=== PATIENT | female | born 1955 | race Caucasian/White ===

== ENCOUNTER 2018-08-15 06:23 | Observation (INO) ==
[~2018-08-15 06:23] MED LIST: Bacitracin 50,000 UNIT, Polymyxin B Sulfate 500,000 UNIT, Sodium Chloride IRRigation 1,... IR ONE
[2018-08-15] MEDS ORDERED: Aminoglycoside Consult 1 EACH MC ONE (06:24)
[2018-08-15] MEDS ORDERED: *HR* Midazolam HCl 2 MG/2 ML VIAL ONE (06:54)
[2018-08-15] MEDS ORDERED: *HR* Propofol 200 MG/20 ML VIAL IVP ONE (06:54)
[2018-08-15] MEDS ORDERED: *HR* FentaNYL (PF) 100 MCG/2 ML VIAL ONE (06:54)
[2018-08-15] MEDS ORDERED: Clindamycin 900 MG/50 ML 900 MG/50 ML IV.SOLN IVPB ONE (06:59)
[2018-08-15] MEDS ORDERED: Ringers Solution, Lactated 1,000 ML IVC SCH (07:00)
--- NOTE | 2018-08-15 07:06 | Anesthesia Evaluation PreOp ---
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: Other (ANXIETY, MIGRTAINES) Other Medical History: Renal (CKD3), Thyroid, Other (OBESITY, BMI 37) Anesthesia History: No Prior Anesthetic Complications, Past Anesthesia (SEVERAL , LUMBAR FUSION 2015) Alcohol Use: none Drug use: none Medications and Allergies Alendronate Sodium [Alendronate Sodium] 70 mg PO TARIQ 08/15/18 [History] Amitriptyline [Elavil] 50 mg PO HS 08/15/18 [History] Bupropion HCl [Wellbutrin Xl] 300 mg PO DAILY 08/15/18 [History] Cholecalciferol (D-3) [Vitamin D] 5,000 unit PO DAILY 08/15/18 [History] Cyanocobalamin (Vitamin B-12) [Vitamin B-12] 2,000 mcg PO DAILY 08/15/18 [ History] Cyclobenzaprine HCl 5 mg PO TID 08/15/18 [History] Ferrous Sulfate [Iron] 325 mg PO TID 08/15/18 [History] Folic Acid 1 mg PO DAILY 08/15/18 [History] Gabapentin [Neurontin] 300 mg PO BID 08/15/18 [History] Levothyroxine [Levothyroxine Sodium] 137 mcg PO DAILY@0630 08/15/18 [History] Multivitamin [One Daily Multivitamin] 1 tab PO DAILY 08/15/18 [History] Propranolol [Inderal] 20 mg PO BID 08/15/18 [History] Sulfamethoxazole/Trimeth DS [Bactrim Ds] 1 tab PO BID 08/15/18 [History] 3 Allergy/AdvReac Type Severity Reaction Status Date / Time Penicillins [PCN] Allergy Hives Verified 08/15/18 06:46 iodine AdvReac Hypotension Verified 08/15/18 06:46 - Meds/Allergy Pre-op Review Medications Reviewed: Yes Allergies Reviewed: Yes Beta Blockers on Current Med List: Yes If Beta Blockers taken, Date/Time (Last Dose taken): 0500 Anesthesia Results - Labs Laboratory Last Values WBC 6.9 K/mcL (4.3-11.1) 08/11/18 12:55 RBC 4.34 M/mcL (3.82-4.97) 08/11/18 12:55 Hgb 13.4 g/dL (11.5-15.4) 08/11/18 12:55 Hct 42.4 % (35.3-44.9) 08/11/18 12:55 MCV 97.7 fL (83.0-100.0) 08/11/18 12:55 MCH 30.9 pg (28.0-33.3) 08/11/18 12:55 MCHC 31.6 g/dL (31.6-35.5) 08/11/18 12:55 RDW 14.3 % (11.5-14.5) 08/11/18 12:55 Plt Count 312 K/mcL (140-400) 08/11/18 12:55 MPV 10.2 fL (9.4-12.4) 08/11/18 12:55 Immature Gran % 0.3 % (0-4) 08/11/18 12:55 Seg Neutrophils % 70.0 % 08/11/18 12:55 Lymphocytes % 19.2 % 08/11/18 12:55 Monocytes % 5.2 % 08/11/18 12:55 Eosinophils % 4.7 % 08/11/18 12:55 Basophils % 0.6 % 08/11/18 12:55 Neutrophils # 4.8 K/mcL (1.6-8.9) 08/11/18 12:55 Lymphocytes # 1.3 K/mcL (0.6-4.6) 08/11/18 12:55 Monocytes # 0.4 K/mcL (0.0-1.3) 08/11/18 12:55 Eosinophils # 0.3 K/mcL (0.0-0.6) 08/11/18 12:55 Basophils # 0.0 K/mcL (0.0-0.2) 08/11/18 12:55 PT 10.5 Seconds (9.4-12.1) 08/11/18 12:55 INR 0.9 08/11/18 12:55 APTT 34.5 Seconds (26.0-36.0) 08/11/18 12:55 BUN 26 mg/dL (8-23) H 08/11/18 12:55 Creatinine 1.15 mg/dL (0.60-1.20) 08/11/18 12:55 Est GFR ( Amer) 57 (> 60) L 08/11/18 12:55 Est GFR (Non-Af Amer) 47 (> 60) L 08/11/18 12:55 BUN/Creatinine Ratio 23 (6-26) 08/11/18 12:55 Anesthesia Exam O2 Sat Height 1.68 m Height 1.68 m Height 1.68 m Weight 104.78 kg Weight 104.78 kg Weight 104.78 kg O2 Sat by Pulse Oximetry 95 Vital Signs Temp Pulse Resp BP Pulse Ox 98.3 F 86 18 107/68 95 08/15/18 07:33 08/15/18 07:33 08/15/18 07:33 08/15/18 07:33 08/15/18 07:33 NPO (# of Hours): 8 - HEENT Mallampati: II Teeth: Normal Oral Opening: Greater than 3 - Cardiac Rhythm: Regular - Pulmonary Breath Sounds: bilateral Clear Respiratory Effort: Symmetrical Anesthesia Assess/Plan ASA Score: 3 Modified [place] Scale for Level of Consciousness: Cooperative, oriented, and tranquil Anesthetic Plan: General Monitoring Plan: Standard Monitors Recovery Plan: PACU
[2018-08-15] MEDS ORDERED: Vancomycin 1,000 MG VIAL ONE (07:30)
--- NOTE | 2018-08-15 07:44 | History & Physical Report ---
Date of Encounter: 08/15/18 Time of Encounter: 07:42 24 Hour HP Update - Instructions Instructions: If the History and Physical is less than 30 days old and was completed prior to A.M. admission and or procedure and has NOT been updated on calendar day of procedure please complete this update prior to performing procedure. - Update Patient reports changes in Medical Condition: No Changes in examination, assessment, or condition: No Changes in Medication: No Preop tests/diagnostics Reviewed: Yes Pre-Op MRSA Screen: Negative Surgery Remains Indicated: Yes Consent for Planned Operative Procedure(s) Verified: Yes - Pre-Operative Checklist Preoperative Checklist Indicated: No Prophylactic Antibiotic Ordered: Yes Home Medications Include Beta Olga Lidia: Yes Beta Olga Lidia Taken Today (Day of Surgery): No Beta Olga Lidia Taken Yesterday (Day Prior to Surgery): Yes Is VTE Prophylaxis Indicated?: Yes
[2018-08-15] MEDS ORDERED: Acetaminophen IV 1,000 MG/100 ML INFUS..BTL ONE (07:46)
[2018-08-15] MEDS ORDERED: EPHEDrine 50 MG/ML VIAL ONE (08:03)
[2018-08-15] MEDS ORDERED: *HR* Promethazine 25 MG/ML VIAL IVP PRN (08:38)
[2018-08-15] MEDS ORDERED: *HR* OxyCODONE Immed Rel 5 MG TABLET PO PRN (08:38)
[2018-08-15] MEDS ORDERED: *HR* PHENYLEPHRINE 1,000 MCG/10 ML SYRINGE IVP ONE (08:57)
[2018-08-15] MEDS ORDERED: Dexamethasone 4 MG/ML VIAL ONE (08:57)
[2018-08-15] MEDS ORDERED: *HR* Rocuronium Bromide 50 MG/5 ML VIAL ONE (08:57)
[2018-08-15] MEDS ORDERED: Lidocaine -MPF 4% 5 ML AMPUL ONE (08:57)
[2018-08-15] MEDS ORDERED: Ondansetron 4 MG/2 ML VIAL ONE (08:57)
[2018-08-15] MEDS ORDERED: Lidocaine -MPF 2% 2 ML VIAL ONE (08:57)
[2018-08-15] MEDS ORDERED: *HR* Phenylephrine 10 MG/ML VIAL ONE (08:57)
[2018-08-15] MEDS ORDERED: Neostigmine Methylsulfate 3 MG/3 ML SYRINGE ONE ×2 (09:08→09:10)
--- NOTE | 2018-08-15 09:39 | Orthopedic Operative Note ---
Date of procedure: 08/15/18 Pre-op diagnosis: Infected lumbar wound Post-op diagnosis: same Operation/Findings: Irrigation and debridement, packing lumbar wound: The patient was brought to the operative theater where she underwent general endotracheal anesthesia. Antibiotics were held prior to the start of the procedure in anticipation of taking intraoperative cultures.. Compression boots and stockings were used for deep vein thrombosis prophylaxis. The patient was placed prone on a Zac table. The back was prepped and draped in the usual sterile fashion. An incision was marked and centered over the L3-S1 interspaces in the midline were previous hardware was noted on preoperative radiographic studies. We used Bovie cautery to make an incision and then this incision was deepened through the lumbar fascia. We noted a sinus tract on the right side when exploring the 1 cm sized open defect in the skin. We took superficial wound cultures, deep wound cultures, and explored this sinus tract which went all the way down to the right-sided hardware. There are mild amounts of seropurulent or chronic appearing tissue around the sinus tract which were debrided. We exposed the hardware on the right side and did further debridement. It looked like a chronic indolent infection. After debridement we copiously irrigated the wound including the hardware, deep layers, and superficial layers with vancomycin impregnated normal saline. We then packed the wound from deep layers over the hardware to the superficial layers with Betadine some Alf diluted with normal saline and Kerlix sponges. The wound was packed open and the packed material was held in place with interrupted 1 Prolene suture. Sterile dressings were placed over the wound, and the wound was protected with an Ioban covering. The patient was turned supine in a hospital bed, and was extubated in the operative theater. All sponge needles and instrument counts were correct at the end of the procedure. The patient tolerated the procedure well without complications. Anesthesia: GETA Surgeon: Jordan Fields Jr Was there an family assistant present: No Estimated blood loss (cc): 50 Specimen: Superficial and deep lumbar wound cultures, deep lumbar wound culture hardw Condition: stable Disposition: PACU
[2018-08-15] MEDS: *HR* HYDROmorphone (PF) 1 MG/ML SYRINGE IVP PRN ×4 (09:56→10:12)
--- NOTE | 2018-08-15 10:32 | Anesthesia Evaluation Post Op ---
Date of Encounter: 08/15/18 Time of Encounter: 10:32 - Discharge PostOp Status: Transfer Patient to floor (Patient's vital signs have been reviewed. Patient is stable postoperatively and has adequately recovered from anesthesia. Patient is determined to have stable airway patency and respiratory function including respiratory rate and oxygen saturation. Patient has a stable heart rate, blood pressure and adequate hydration. Patients mental status is acceptable. Patients temperature is appropriate. Pain and nausea are adequately controlled.)
[2018-08-15] MEDS ORDERED: Ondansetron 4 MG/2 ML VIAL IVP PRN (10:55)
[2018-08-15] MEDS ORDERED: Naloxone 0.4 MG/ML INJ IVP PRN (10:55)
[2018-08-15] MEDS ORDERED: Acetaminophen 325 MG TABLET PO PRN (10:55)
[2018-08-15] MEDS ORDERED: Ringers Solution, Lactated 1,000 ML ONE (11:38)
[2018-08-15] MEDS ORDERED: 0.9 % Sodium Chloride 500 ML IVC ONE (13:21)
[2018-08-15] MEDS: *HR* OxyCODONE Immed Rel 5 MG TABLET PO PRN ×2 (17:59→23:33)
[2018-08-15] MEDS: Sulfamethoxazole/Trimeth DS 1 EACH TABLET PO SCH (20:28)
[2018-08-16] MEDS: *HR* HYDROcodone/Acet 5/325 mg TABLET PO PRN ×2 (03:43→13:08)
[2018-08-16 06:03] LABS: Basophils % 0.1 %; Hematocrit 35.1 % (35.3-44.9); Immature Granulocytes % 0.3 % (0-4); Lymphocytes # 0.7 K/mcL (0.6-4.6); Mean Corpuscular HGB Conc 32.2 g/dL (31.6-35.5); Mean Corpuscular Hemoglobin 30.8 pg (28.0-33.3); Mean Corpuscular Volume 95.6 fL (83.0-100.0); Mean Platelet Volume 9.8 fL (9.4-12.4); Monocytes # 0.5 K/mcL (0.0-1.3); Monocytes % 5.5 %; Neutrophils # 8.2 K/mcL (1.6-8.9); Platelet Count 242 K/mcL (140-400); Red Blood Count 3.67 M/mcL (3.82-4.97); Red Cell Distribution Width 13.9 % (11.5-14.5); Segmented Neutrophils % 87.1 %
[2018-08-16 06:04] LABS: Hemoglobin 11.3 g/dL (11.5-15.4)
[2018-08-16] MEDS: *HR* OxyCODONE Immed Rel 5 MG TABLET PO PRN ×3 (06:53→23:43)
[2018-08-16] MEDS: Cholecalciferol (D-3) 1,000 UNIT TABLET PO SCH (07:39)
[2018-08-16] MEDS: Multivit/Ca/Min/Fe/FA 1 TAB TABLET PO SCH (07:40)
[2018-08-16] MEDS: Sulfamethoxazole/Trimeth DS 1 EACH TABLET PO SCH (07:40)
[2018-08-16] MEDS: BuPROPion XL (24 HR) 150 MG TABLET PO SCH (07:40)
[2018-08-16] MEDS: Cyanocobalamin (B-12) 1,000 MCG TABLET PO SCH (07:40)
[2018-08-16] MEDS: Folic Acid 1 MG TABLET PO SCH (07:40)
--- NOTE | 2018-08-16 11:48 | Spine Progress Note ---
Date of Encounter: 08/16/18 Time of Encounter: 11:46 Subjective Principal diagnosis: Lumbar wound infection Interval history: Patient without complaints. Afebrile vital signs stable. Wound is packed open with Betadine soaked dressings and Ioban in place. Some leakage noted. She is neurovascularly intact with regard to bilateral lower extremities. Preliminary cultures revealed gram-negative toan. Asked case with infectious disease who agreed to consult patient. Continue antibiotics. We will plan irrigation and debridement and closure lumbar wound tomorrow. Objective Vital signs: Vital Signs Temp Pulse Resp BP Pulse Ox 08/16/18 10:47 97.7 F 63 16 100/67 100 08/16/18 07:51 100 08/16/18 07:48 98.0 F 77 16 110/65 100 08/16/18 05:00 97.7 F 69 16 100/60 96 08/15/18 23:47 97.5 F L 67 16 94/57 98 08/15/18 18:36 98.1 F 74 16 91/52 94 08/15/18 17:02 98.1 F 79 14 107/62 96 08/15/18 14:16 97.7 F 87 10 86/53 97 08/15/18 13:22 97.6 F 91 97/63 97 08/15/18 12:44 97.6 F 95 14 94/61 97 08/15/18 11:49 99 Intake and Output 08/15/18 08/16/18 08/16/18 23:59 07:59 15:59 Intake Total 450 / 450 250 / 250 1000 / 1000 Output Total 400 / 400 Balance 50 / 50 250 / 250 1000 / 1000 Intake: IV Fluids 250 / 250 250 / 250 1000 / 1000 Vancocin 1,250 MG In 0.9 % 250 / 250 250 / 250 Sodium Chloride 250 ML @ 167 mls/hr IVPB Q12H KIESHA Rx#: [id number] Oral 200 / 200 Output: Urine 400 / 400 Other: # Voids 1 1 1 Weight 104.8 kg - Labs CBC & BMP: 08/16/18 05:32 Labs: Abnormal lab results RBC 3.67 M/mcL (3.82-4.97) L 08/16/18 05:32 Hgb 11.3 g/dL (11.5-15.4) L D 08/16/18 05:32 Hct 35.1 % (35.3-44.9) L 08/16/18 05:32 ESR 26 mm/hr (0-15) H 08/16/18 05:32 Consult Discharge Plan - Plan Referrals: Juanito Echevarria MD [Primary Care Provider] -
--- NOTE | 2018-08-16 12:50 | Infectious Disease Consult ---
Date of Encounter: 08/16/18 Time of Encounter: 12:39 Assessment and Plan (1) Discitis of lumbosacral region Status: Acute Assessment and plan: Initial lumbar fusion at [facility] August 2016 Complicated by surgical wound infection with Escherichia coli September 2016; treated with oral antibiotics Surgical wound dehiscence in July 2018. Started seeing wound care with wound tracking down. Wound culture on 07/29/2018 positive for Escherichia coli that is pansensitive with the exception of Unasyn/ampicillin X-ray revealed intact hardware with no hardware loosening Status post I&D by Dr. Fields 08/15/2018. The tunneling track down through the fascia to the hardware but no pam purulence Intra-Op cultures positive for gram-negative rods Concern for hardware involvement Check baseline labs including CBC, BMP, ESR and CRP DC vancomycin Start cefepime 2 g IV every 12 hours while cultures finalize Will tailor antibiotics based on the culture final ID and susceptibility Duration of treatment likely 6 weeks and maybe suppressive oral antibiotic therapy after that Monitor labs and for drug toxicity Discussed with Dr. Fields (2) Penicillin allergy Status: Acute Assessment and plan: Had a rash when she took penicillin over 20 years ago I explained to her that cefepime as cephalosporin and this may be 8% cross reactivity with penicillin so we will watch her closely (3) GERD (gastroesophageal reflux disease) Status: Acute Qualifiers: Esophagitis presence: without esophagitis Qualified Code(s): K21.9 - Gastro -esophageal reflux disease without esophagitis (4) Hyperlipidemia Status: Acute Qualifiers: Hyperlipidemia type: unspecified Qualified Code(s): E78.5 - Hyperlipidemia , unspecified (5) Thyroid disease Status: Acute (6) Chronic kidney disease (CKD) Status: Acute Assessment and plan: GFR in the 40s last time a BMP was checked Repeat BUN and creatinine and dose adjust antibiotics based on the creatinine clearance Qualifiers: Chronic kidney disease stage: stage 2 (mild) Qualified Code(s): N18.2 - Chronic kidney disease, stage 2 (mild) (7) Non-healing surgical wound Status: Acute Assessment and plan: Causative organism gram-negative jones Continue cefepime Duration of treatment likely 6 weeks Qualifiers: Encounter type: initial encounter Qualified Code(s): T81.89XA - Other complications of procedures, not elsewhere classified, initial encounter Infectious Disease HPI - Data of Consult Patient: new to practice Consult date: 08/16/18 Requesting Physician: Jordan Fields Jr MD Primary Care Provider: Juanito Echevarria MD - Consult Narrative Reason for consult: Hardware infection of the spine History of present illness: Ms. Butler is a 63 year old female Patient is 63-year-old woman who presented to [place] on 08/15/2018 for evaluation of surgical wound in the lumbar spine nonhealing. We are consulted today for spine hardware infection. Patient is a 63-year-old woman with past medical history mentioned below including GERD, hyperlipidemia, thyroid disease and severe stenosis of the spinal, with lumbar radiculopathy status post lumbar fusion at [facility] on 08/26/2016. Patient apparently was discharged home and post op day and she started having drainage. Patient tells me that she went back and had an I&D done on September 22 and was discharged home on oral doxycycline but she was told she had Escherichia coli and it was in the blood. I am not sure if the history the patient is providing is accurate. Patient states that she was doing well through July 2018. Prior to that she denies any fevers any chills any night sweats any weight loss. Patient denied any back pain. All patient had what she felt like was a pimple that started draining. Prior to that patient told me that she fell twice but she does not remember why. She denies tripping or if she denies anything. She just told me she was walking and the next thing she remembers is waking up on the floor. Patient does not denies any trauma to her back. Patient was evaluated at [facility] with the wound infection and apparently she was told to see plastics and she was not happy with how [facility] was do not think so she came here for second opinion. Patient was seen by wound care doctor Joyce and he was concerned that the infection was tunneling deeper and deeper from 4 cm to 8 cm over time. Patient was eventually seen by Dr. Fields and was taken to the OR for I&D. Dr. Fields tells me that the infection tracked down all the way to the hardware and through the fascia. Patient was washed up and Intra-Op cultures were sent. Cultures intraoperatively on growing gram-negative rods 2 out of 2 sets. There was no pam purulence or necrotic tissue. Currently patient appears comfortable laying in bed. Denies any headache no sinus pressure no runny nose. No chest pain or shortness of breath that. No nausea or vomiting. No abdominal pain or diarrhea. No constipation. No urinary symptoms. Patient denies any rash or joint pain. CC: Jordan Fields Jr MD Past Med Surg Social Fam HX - Past Medical History Medical history: GERD, hyperlipidemia, thyroid disease, other Additional medical history: Severe stenosis spinal column, Lumbar Radiculopathy , Lumbago with parasthemia, Gastroperesis Psychiatric history: anxiety, depression - Past Surgical History Additional surgical history: Tansilectomy 1959, Cholecystectomy, Exploratory lap , x2, Ectopic , Fracture right ankle with pinning, Gastric bypass, TKR, Spinal fusion with bone graft/blood transfusion 2015. - Social History Smoking Status: Never smoker Smokeless Tobacco Status: No Alcohol use: none Drug use: none - Family History Mother Adopted: No Family Member Ethnicity: Non- Living Status: Hx Family Cardiac Disorders: Yes Hx Family Respiratory Disorders: Yes Hx Family Cancer: No Hx Family GI Disorders: No Hx Family Endocrine Disorder: No Hx Family Neuromuscular Disorders: No Hx Family Neurologic Disorders: No Hx Family HEENT Disorders: No Hx Family Autoimmune Disorders: No Father Adopted: No Family Member Ethnicity: Non- Living Status: Still Living Hx Family Cardiac Disorders: Yes Hx Family Respiratory Disorders: Yes Hx Family Cancer: No Hx Family GI Disorders: No Hx Family Endocrine Disorder: No Hx Family Neuromuscular Disorders: No Hx Family Neurologic Disorders: No Hx Family HEENT Disorders: No Hx Family Autoimmune Disorders: No Infectious Disease-CN:Meds Alendronate Sodium [Alendronate Sodium] 70 mg PO TARIQ 08/15/18 [History] Amitriptyline [Elavil] 50 mg PO HS 08/15/18 [History] Bupropion HCl [Wellbutrin Xl] 300 mg PO DAILY 08/15/18 [History] Cholecalciferol (D-3) [Vitamin D] 5,000 unit PO DAILY 08/15/18 [History] Cyanocobalamin (Vitamin B-12) [Vitamin B-12] 2,000 mcg PO DAILY 08/15/18 [ History] Cyclobenzaprine HCl 5 mg PO TID 08/15/18 [History] Ferrous Sulfate [Iron] 325 mg PO TID 08/15/18 [History] Folic Acid 1 mg PO DAILY 08/15/18 [History] Gabapentin [Neurontin] 300 mg PO BID 08/15/18 [History] Levothyroxine [Levothyroxine Sodium] 137 mcg PO DAILY@0630 08/15/18 [History] Multivitamin [One Daily Multivitamin] 1 tab PO DAILY 08/15/18 [History] Propranolol [Inderal] 20 mg PO BID 08/15/18 [History] Sulfamethoxazole/Trimeth DS [Bactrim Ds] 1 tab PO BID 08/15/18 [History] 3 Allergy/AdvReac Type Severity Reaction Status Date / Time Penicillins [PCN] Allergy Hives Verified 08/15/18 06:46 iodine AdvReac Hypotension Verified 08/15/18 06:46 Review of systems: 10 point review of systems done, negative other for what is mentioned in the history of present illness Exam - Constitutional Vitals: Temp Pulse Resp BP Pulse Ox 97.7 F 63 16 100/67 100 08/16/18 10:47 08/16/18 10:47 08/16/18 10:47 08/16/18 10:47 08/16/18 10:47 General appearance: no acute distress, no febrile - Head Head exam: Present: atraumatic, normocephalic - Eye Eye exam: Present: EOMI, PERRL, sclera anicteric - ENT ENT exam: Present: mucous membranes moist Additional comments: No oral lesions - Neck Neck exam: Present: full ROM, normal inspection - Respiratory Respiratory exam: Present: CTAB. Absent: rhonchi, wheezes - Cardiovascular Cardiovascular exam: Present: RRR, +S1, +S2 - GI/Abdominal GI/Abdominal exam: Present: normal bowel sounds, soft. Absent: tenderness - Extremities Exam Extremities exam: Present: full ROM, normal inspection - Back Exam Additional comments: Surgical dressing over the lumbar spine. No obvious surrounding erythema or drainage. - Neurological Exam Neurological exam: Present: alert, oriented X3, no focal deficits - Psychiatric Psychiatric exam: Present: anxious, normal affect, normal mood - Skin Skin exam: Present: normal color. Absent: rash Infectious Disease CN: Results - Labs CBC & Chem 7: 08/16/18 05:32 Cultures: Cultures 08/16/18 12:18 Blood Culture - Preliminary Peripheral Venipuncture Culture is incubating and being continuously monitored for growth. Final report to follow. 08/16/18 12:12 Blood Culture - Preliminary Peripheral Venipuncture Culture is incubating and being continuously monitored for growth. Final report to follow. 08/15/18 08:33 Surgical Biopsy Culture - Preliminary Other-Specify in Comments 08/15/18 08:33 Wound Culture - Preliminary Other-Specify in Comments Gram Negative Jones 08/15/18 08:33 Wound Culture - Preliminary Other-Specify in Comments No growth. 08/15/18 08:33 Wound Culture - Preliminary Other-Specify in Comments Gram Negative Jones Consult Discharge Plan - Plan Referrals: Juanito Echevarria MD [Primary Care Provider] -
[2018-08-16] MEDS: Cefepime HCl 2,000 MG in 0.9 % Sodium Chloride Mini Bag 100 ML IVPB SCH (17:43)
--- NOTE | 2018-08-16 20:31 | Anesthesia Evaluation PreOp ---
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's) Other Medical History: Renal (stage 3 CKD), Thyroid, Other (anxiety) Anesthesia History: No Prior Anesthetic Complications, Past Anesthesia Alcohol Use: none Drug use: none Medications and Allergies Alendronate Sodium [Alendronate Sodium] 70 mg PO TARIQ 08/15/18 [History] Amitriptyline [Elavil] 50 mg PO HS 08/15/18 [History] Bupropion HCl [Wellbutrin Xl] 300 mg PO DAILY 08/15/18 [History] Cholecalciferol (D-3) [Vitamin D] 5,000 unit PO DAILY 08/15/18 [History] Cyanocobalamin (Vitamin B-12) [Vitamin B-12] 2,000 mcg PO DAILY 08/15/18 [ History] Cyclobenzaprine HCl 5 mg PO TID 08/15/18 [History] Ferrous Sulfate [Iron] 325 mg PO TID 08/15/18 [History] Folic Acid 1 mg PO DAILY 08/15/18 [History] Gabapentin [Neurontin] 300 mg PO BID 08/15/18 [History] Levothyroxine [Levothyroxine Sodium] 137 mcg PO DAILY@0630 08/15/18 [History] Multivitamin [One Daily Multivitamin] 1 tab PO DAILY 08/15/18 [History] Propranolol [Inderal] 20 mg PO BID 08/15/18 [History] Sulfamethoxazole/Trimeth DS [Bactrim Ds] 1 tab PO BID 08/15/18 [History] 3 Allergy/AdvReac Type Severity Reaction Status Date / Time Penicillins [PCN] Allergy Hives Verified 08/15/18 06:46 iodine AdvReac Hypotension Verified 08/15/18 06:46 - Meds/Allergy Pre-op Review Medications Reviewed: Yes Allergies Reviewed: Yes Beta Blockers on Current Med List: Yes If Beta Blockers taken, Date/Time (Last Dose taken): 08/16/2018 at 2138 Anesthesia Results - Labs 08/16/18 05:32 Anesthesia Exam Vital Signs/O2 Sat, Most Current Temp Pulse Resp BP Pulse Ox 98.7 F 94 18 95/62 97 08/16/18 18:54 08/16/18 18:54 08/16/18 18:54 08/16/18 18:54 08/16/18 18:54 Height: 5'6''/1.68 m Weight: 232 lbs/104.8 kg - HEENT Pupil (Motor): EOMI Mallampati: II Teeth: Normal Oral Opening: Greater than 3 - SWITCH OPERATORS SUPERVISOR LOC: Oriented SWITCH OPERATORS SUPERVISOR Motor: Normal RUE, Normal LUE, Normal RLE, Normal LLE, Normal Face SWITCH OPERATORS SUPERVISOR Sensory: Normal: RUE, LUE, RLE, LLE, Face - Cardiac Rhythm: Regular Murmur: None - Pulmonary Breath Sounds: bilateral Clear Respiratory Effort: Symmetrical Anesthesia Assess/Plan ASA Score: 2 Modified [place] Scale for Level of Consciousness: Cooperative, oriented, and tranquil Anesthetic Plan: General Monitoring Plan: Standard Monitors Recovery Plan: PACU
[2018-08-17] MEDS: Cefepime HCl 2,000 MG in 0.9 % Sodium Chloride Mini Bag 100 ML IVPB SCH (05:43)
[2018-08-17] MEDS ORDERED: Bacitracin 50,000 UNIT, Polymyxin B Sulfate 500,000 UNIT, Sodium Chloride IRRigation 1,... IR ONE (06:00)
[2018-08-17 06:05] LABS: Basophils # 0.1 K/mcL (0.0-0.2); Basophils % 0.8 %; Eosinophils # 0.2 K/mcL (0.0-0.6); Eosinophils % 2.1 %; Hematocrit 34.2 % (35.3-44.9); Hemoglobin 11.1 g/dL (11.5-15.4); Immature Granulocytes % 0.4 % (0-4); Lymphocytes % 13.9 %; Mean Corpuscular HGB Conc 32.5 g/dL (31.6-35.5); Mean Corpuscular Hemoglobin 30.7 pg (28.0-33.3); Mean Corpuscular Volume 94.7 fL (83.0-100.0); Mean Platelet Volume 9.6 fL (9.4-12.4); Monocytes # 0.7 K/mcL (0.0-1.3); Monocytes % 10.3 %; Neutrophils # 5.2 K/mcL (1.6-8.9); Platelet Count 215 K/mcL (140-400); Red Blood Count 3.61 M/mcL (3.82-4.97); Red Cell Distribution Width 14.4 % (11.5-14.5); Segmented Neutrophils % 72.5 %
[2018-08-17 06:22] LABS: Alanine Aminotransferase 398 Units/L (7-52); Albumin 3.2 g/dL (3.5-5.7); Albumin/Globulin Ratio 1.2 (1.1-2.2); Alkaline Phosphatase 116 Units/L (34-104); Aspartate Amino Transferase 262 Units/L (13-39); BUN/Creatinine Ratio 19 (6-26); Bilirubin,Total 0.3 mg/dL (0.3-1.0); Blood Urea Nitrogen 21 mg/dL (8-23); Calcium 8.5 mg/dL (8.6-10.3); Carbon Dioxide 25 mEq/L (23-29); Chloride 108 mEq/L (98-107); Globulin 2.6 g/dL (2.4-3.5); Glucose 113 mg/dL (70-105); Osmolality,Calculated 294 (280-300); Potassium 4.6 mEq/L (3.5-5.1); Sodium 140 mEq/L (136-145); Total Protein 5.8 g/dL (6.4-8.9); eGFR For Non-African Americans 51 (> 60)
[2018-08-17 08:00] LABS: C-Reactive Protein 29 mg/L (Less than 10)
[2018-08-17] MEDS: *HR* OxyCODONE Immed Rel 5 MG TABLET PO PRN ×3 (09:36→23:31)
[2018-08-17] MEDS: BuPROPion XL (24 HR) 150 MG TABLET PO SCH (09:45)
[2018-08-17] MEDS: Cholecalciferol (D-3) 1,000 UNIT TABLET PO SCH (09:45)
[2018-08-17] MEDS: Folic Acid 1 MG TABLET PO SCH (09:45)
[2018-08-17] MEDS: Cyanocobalamin (B-12) 1,000 MCG TABLET PO SCH (09:45)
[2018-08-17] MEDS: Multivit/Ca/Min/Fe/FA 1 TAB TABLET PO SCH (09:45)
[2018-08-17] MEDS ORDERED: Ondansetron 4 MG/2 ML VIAL ONE (11:37)
[2018-08-17] MEDS ORDERED: *HR* Midazolam HCl 2 MG/2 ML VIAL ONE (11:37)
[2018-08-17] MEDS ORDERED: *HR* Propofol 200 MG/20 ML VIAL IVP ONE (11:37)
[2018-08-17] MEDS ORDERED: Neostigmine Methylsulfate 3 MG/3 ML SYRINGE ONE (11:37)
[2018-08-17] MEDS ORDERED: Lidocaine -MPF 2% 2 ML VIAL ONE (11:37)
[2018-08-17] MEDS ORDERED: Lidocaine -MPF 4% 5 ML AMPUL ONE (11:37)
[2018-08-17] MEDS ORDERED: *HR* FentaNYL (PF) 100 MCG/2 ML VIAL ONE (11:37)
[2018-08-17] MEDS ORDERED: *HR* Rocuronium Bromide 50 MG/5 ML VIAL ONE (11:37)
[2018-08-17] MEDS ORDERED: *HR* Succinylcholine 200 MG/10 ML VIAL IVP ONE (11:37)
[2018-08-17] MEDS ORDERED: Dexamethasone 4 MG/ML VIAL ONE (11:37)
--- NOTE | 2018-08-17 11:49 | Infectious Disease Progress No ---
Date of Encounter: 08/17/18 Time of Encounter: 11:46 - Assessment and Plan (1) Discitis of lumbosacral region Current Visit: Yes Status: Acute Initial lumbar fusion at [facility] August 2016 Complicated by surgical wound infection with Escherichia coli September 2016; treated with oral antibiotics Surgical wound dehiscence in July 2018. Started seeing wound care with wound tracking down. Wound culture on 07/29/2018 positive for Escherichia coli that is pansensitive with the exception of Unasyn/ampicillin X-ray revealed intact hardware with no hardware loosening Status post I&D by Dr. Fields 08/15/2018. The tunneling track down through the fascia to the hardware but no pam purulence. Intra-op cultures positive for E. coli. Concern for hardware involvement. Planned for repeat washout later today. Wound care and activity per to ortho-spine team. Discontinue Cefepime. Start Rocephin 2 grams IV daily. Duration of treatment depends on the clinical picture, but likely a total of 6 weeks with possible suppressive oral antibiotic therapy after that. Monitor renal function and dose-adjust antibiotics. Midline placed 08/16/18. Will need weekly CBC, BUN/Cr, ESR, and CRP. Will need weekly midline care per protocol. Follow up with ID 2 weeks post-discharge. (2) Non-healing surgical wound Current Visit: No Status: Acute Location: Lumbar spine Likely non-healing due to infection. Wound care per the ortho-spine team. Qualifiers: Encounter type: initial encounter Qualified Code(s): T81.89XA - Other compl ications of procedures, not elsewhere classified, initial encounter (3) Penicillin allergy Current Visit: Yes Status: Acute Had a rash when she took it 20 years ago. Appears to be tolerating cefepime without a problem, but continue close monitoring. (4) GERD (gastroesophageal reflux disease) Current Visit: Yes Status: Acute Qualifiers: Esophagitis presence: without esophagitis Qualified Code(s): K21.9 - Gastro-esophageal reflux disease without esophagitis (5) Hyperlipidemia Current Visit: Yes Status: Acute Qualifiers: Hyperlipidemia type: unspecified Qualified Code(s): E78.5 - Hyperlipidemia, unspecified (6) Thyroid disease Current Visit: Yes Status: Acute (7) Chronic kidney disease (CKD) Current Visit: Yes Status: Acute Monitor closely. Dose-adjust antibiotics and avoid nephrotoxins. Qualifiers: Chronic kidney disease stage: stage 2 (mild) Qualified Code(s): N18.2 - Chronic kidney disease, stage 2 (mild) - Subjective Interval history: Patient seen and examined. No acute events noted overnight. Patient states overall she does not feel very well today and has a headache because she is not receiving her normally prescribed Inderal for migraine headaches. She reports nausea associated with headache as well as some photophobia. She denies any chest pain or shortness of breath or cough. She denies any vomiting or diarrhea. She denies any oral thrush or any skin lesions. She denies any urinary complaints or incontinence. She denies any numbness or tingling. Infect Dis PN-Objective Data - Labs CBC & Chem 7: 08/17/18 05:40 08/17/18 05:40 Labs: Laboratory Results - last 24 hr 08/17/18 08/17/18 08/17/18 05:40 05:40 05:40 WBC 7.2 RBC 3.61 L Hgb 11.1 L Hct 34.2 L MCV 94.7 MCH 30.7 MCHC 32.5 RDW 14.4 Plt Count 215 MPV 9.6 Immature Gran % 0.4 Seg Neutrophils % 72.5 Lymphocytes % 13.9 Monocytes % 10.3 Eosinophils % 2.1 Basophils % 0.8 Neutrophils # 5.2 Lymphocytes # 1.0 Monocytes # 0.7 Eosinophils # 0.2 Basophils # 0.1 ESR 28 H Sodium 140 Potassium 4.6 Chloride 108 H Carbon Dioxide 25 BUN 21 Creatinine 1.08 Est GFR ( Amer) > 60 Est GFR (Non-Af Amer) 51 L BUN/Creatinine Ratio 19 Glucose 113 H Calculated Osmolality 294 Calcium 8.5 L Total Bilirubin 0.3 AST 262 H ALT 398 H Alkaline Phosphatase 116 H C-Reactive Protein 29 H Serum Total Protein 5.8 L Albumin 3.2 L Globulin 2.6 Albumin/Globulin Ratio 1.2 Cultures: Cultures 08/15/18 08:33 Wound Culture - Final Other-Specify in Comments Escherichia coli 08/15/18 08:33 Wound Culture - Final Other-Specify in Comments Escherichia coli 08/15/18 08:33 Wound Culture - Final Other-Specify in Comments No growth. 08/15/18 08:33 Surgical Biopsy Culture - Preliminary Other-Specify in Comments 08/16/18 12:18 Blood Culture - Preliminary Peripheral Venipuncture Culture is incubating and being continuously monitored for growth. Final report to follow. 08/16/18 12:12 Blood Culture - Preliminary Peripheral Venipuncture Culture is incubating and being continuously monitored for growth. Final report to follow. Exam - Constitutional Vitals: Temp Pulse Resp BP Pulse Ox 98.2 F 89 18 103/54 98 08/17/18 06:56 08/17/18 09:30 08/17/18 06:56 08/17/18 09:30 08/17/18 06:56 General appearance: cooperative, no acute distress, obese - Head Head exam: Present: atraumatic, normal inspection, normocephalic - Eye Eye exam: Present: EOMI, normal appearance, PERRL Pupils: Present: normal accommodation - ENT ENT exam: Present: mucous membranes moist, normal oropharynx - Neck Neck exam: Present: normal inspection - Respiratory Respiratory exam: Present: CTAB. Absent: rales, respiratory distress, rhonchi, wheezes - Cardiovascular Cardiovascular exam: Present: RRR, +S1, +S2 - GI/Abdominal GI/Abdominal exam: Present: distended (obese), normal bowel sounds, soft. Absent: tenderness - Extremities Exam Extremities exam: Present: normal inspection. Absent: joint swelling, pedal edema, tenderness - Back Exam Additional comments: Surgical site dressing noted to the lumbar spine that is clean, dry, and intact. - Neurological Exam Neurological exam: Present: alert, oriented X3, no focal deficits - Psychiatric Psychiatric exam: Present: normal affect, normal mood - Skin Skin exam: Present: dry, intact, normal color, warm Consult Discharge Plan - Plan Referrals: Juanito Echevarria MD [Primary Care Provider] - - Attending Attestation I examined this patient and my medical decision-making was reviewed with the Resident Physician. I agree with the documented findings, disposition and treatment plan as described except to the extent set forth below.
[2018-08-17] MEDS ORDERED: Famotidine 20 MG/2 ML VIAL ONE (11:52)
[2018-08-17] MEDS ORDERED: Acetaminophen IV 1,000 MG/100 ML INFUS..BTL ONE (11:52)
[2018-08-17] MEDS ORDERED: Vancomycin 1,000 MG VIAL ONE (11:54)
[2018-08-17] MEDS ORDERED: cefTRIAXone 2,000 MG in Water for inj. (sterile) 20 ML 20 ML IVP SCH (12:00)
[2018-08-17] MEDS ORDERED: *HR* PHENYLEPHRINE 1,000 MCG/10 ML SYRINGE IVP ONE (12:43)
[2018-08-17] MEDS ORDERED: *HR* HYDROmorphone (PF) 1 MG/ML SYRINGE IVP PRN (12:46)
[2018-08-17] MEDS ORDERED: *HR* Labetalol 20 MG/4 ML SYRINGE IVP PRN (12:46)
[2018-08-17] MEDS ORDERED: *HR* Promethazine 25 MG/ML VIAL IVP PRN (12:46)
--- NOTE | 2018-08-17 13:26 | Orthopedic Operative Note ---
Date of procedure: 08/17/18 Pre-op diagnosis: Lumbar wound infection Operation/Findings: Irrigation and debridement and closure lumbar wound: The patient was brought to the operative theater where she underwent general endotracheal anesthesia. She was given antibiotics prior to the start of the procedure. Compression boots and stockings were used for deep vein thrombosis prophylaxis. The patient was placed prone on a Zac table. The back was prepped and draped in the usual sterile fashion after a Betadine impregnated Kerlix packing was removed. We copiously irrigated the deep layers including the right sided hardware as well as the superficial layers with 3 L of normal saline. We debrided some tissue in the deep layers. Overall the wound bed appeared beefy red and granulating. There was no purulence. It was significantly improved compared to the intraoperative visualization 2 days prior. After the debridement and irrigation , we closed the deep fascial layer with 1 Vicryl. We closed the subcutaneous tissue and skin with interrupted O and 1 Prolene suture. Sterile dressings were placed over the wound, the patient was turned supine in a hospital bed, and was extubated in the operative theater. All sponge needles and instrument counts were correct at the end of the procedure. The patient tolerated the procedure well without complications. Anesthesia: CLARICE Surgeon: Jordan Fields Jr Was there an financial sales assistant present: No Estimated blood loss (cc): 15 Specimen: None Condition: stable Disposition: PACU
[2018-08-17] MEDS ORDERED: Ringers Solution, Lactated 1,000 ML ONE (13:40)
--- NOTE | 2018-08-17 14:16 | Anesthesia Evaluation Post Op ---
Date of Encounter: 08/17/18 Time of Encounter: 14:00 - Vital Signs Vital Signs: Vital Signs/O2 Sat/Glucose, Most Current Temp Pulse Resp BP Pulse Ox 08/17/18 14:00 97.2 F L 82 16 109/66 98 08/17/18 13:50 82 16 106/64 98 08/17/18 13:40 81 14 98/60 99 08/17/18 13:30 97.0 F L 81 12 84/47 96 - Lungs Lungs: Clear Ascult./Percussion - Airway Airway: Non-obstructed - Cardiovascular Regular Rate - Mental Status Mental Status: Alert & Oriented, Answers Appropriately - Pain Pain Scale: 0 - Nausea Vomiting Nausea Vomiting: Not Present - Hydration Hydration: NPO - Discharge PostOp Status: Transfer Patient to floor
[2018-08-17] MEDS ORDERED: *HR* HYDROcodone/Acet 5/325 mg TABLET PO PRN (14:55)
[2018-08-17] MEDS ORDERED: Ondansetron 4 MG/2 ML VIAL IVP PRN (14:55)
[2018-08-17] MEDS ORDERED: Acetaminophen 325 MG TABLET PO PRN (14:55)
[2018-08-17] MEDS ORDERED: Naloxone 0.4 MG/ML INJ IVP PRN (14:55)
[2018-08-17] MEDS: Ringers Solution, Lactated 1,000 ML IVC SCH ×2 (15:27→23:34)
[2018-08-17] MEDS: cefTRIAXone 2,000 MG in 0.9 % Sodium Chloride Mini Bag 100 ML IVPB SCH (17:38)
[2018-08-18] MEDS ORDERED: Cyanocobalamin (B-12) 1,000 MCG TABLET PO SCH (09:00)
[2018-08-18] MEDS ORDERED: BuPROPion XL (24 HR) 150 MG TABLET PO SCH (09:00)
[2018-08-18] MEDS ORDERED: Cholecalciferol (D-3) 1,000 UNIT TABLET PO SCH (09:00)
[2018-08-18] MEDS ORDERED: Folic Acid 1 MG TABLET PO SCH (09:00)
[2018-08-18] MEDS ORDERED: Multivit/Ca/Min/Fe/FA 1 TAB TABLET PO SCH (09:00)
[2018-08-18 13:18] LABS: Basophils # 0.1 K/mcL (0.0-0.2); Basophils % 0.8 %; Eosinophils # 0.2 K/mcL (0.0-0.6); Eosinophils % 1.9 %; Hemoglobin 11.3 g/dL (11.5-15.4); Immature Granulocytes % 0.4 % (0-4); Lymphocytes # 1.9 K/mcL (0.6-4.6); Lymphocytes % 21.8 %; Mean Corpuscular HGB Conc 32.3 g/dL (31.6-35.5); Mean Corpuscular Volume 95.9 fL (83.0-100.0); Mean Platelet Volume 9.8 fL (9.4-12.4); Monocytes # 0.7 K/mcL (0.0-1.3); Monocytes % 8.1 %; Neutrophils # 5.7 K/mcL (1.6-8.9); Platelet Count 254 K/mcL (140-400); Red Blood Count 3.65 M/mcL (3.82-4.97); Red Cell Distribution Width 14.4 % (11.5-14.5)
[2018-08-18] MEDS: *HR* OxyCODONE Immed Rel 5 MG TABLET PO PRN (13:39)
--- NOTE | 2018-08-18 14:11 | Infectious Disease Progress No ---
Date of Encounter: 08/18/18 Time of Encounter: 11:20 - Assessment and Plan (1) Discitis of lumbosacral region Status: Acute Initial lumbar fusion at [facility] August 2016 Complicated by surgical wound infection with Escherichia coli September 2016; treated with oral antibiotics Surgical wound dehiscence in July 2018. Started seeing wound care with wound tracking down. Wound culture on 07/29/2018 positive for Escherichia coli that is pansensitive with the exception of Unasyn/ampicillin X-ray revealed intact hardware with no hardware loosening Status post I&D by Dr. Fields 08/15/2018. The tunneling track down through the fascia to the hardware but no pam purulence. Intra-op cultures positive for E. coli. Concern for hardware involvement. Status post repeat washout 08/17/[address] Fields. Operative note reviewed. Wound care and activity per to ortho-spine team. Continue Rocephin 2 grams IV daily. Duration of treatment depends on the clinical picture, but likely a total of 6 weeks with possible suppressive oral antibiotic therapy after that. Monitor renal function and dose-adjust antibiotics. Midline placed 08/16/18. Will need weekly CBC, BUN/Cr, ESR, and CRP. Will need weekly midline care per protocol. Follow up with ID 09/06/18 at 1340. (2) Non-healing surgical wound Status: Acute Location: Lumbar spine Likely non-healing due to infection. Wound care per the ortho-spine team. Qualifiers: Encounter type: initial encounter Qualified Code(s): T81.89XA - Other complications of procedures, not elsewhere classified, initial encounter (3) Penicillin allergy Status: Acute Had a rash when she took it 20 years ago. Appears to be tolerating cefepime without a problem, but continue close monitoring. (4) GERD (gastroesophageal reflux disease) Status: Acute Qualifiers: Esophagitis presence: without esophagitis Qualified Code(s): K21.9 - Gastro-esophageal reflux disease without esophagitis (5) Hyperlipidemia Status: Acute Qualifiers: Hyperlipidemia type: unspecified Qualified Code(s): E78.5 - Hyperlipidemia, unspecified (6) Thyroid disease Status: Acute (7) Chronic kidney disease (CKD) Status: Acute Monitor closely. Dose-adjust antibiotics and avoid nephrotoxins. Qualifiers: Chronic kidney disease stage: stage 2 (mild) Qualified Code(s): N18.2 - Chronic kidney disease, stage 2 (mild) - Subjective Interval history: Patient seen and examined. No acute events noted overnight. Patient states overall she feels much better. Denies fevers, chills, or rigors. Denies chest pain, shortness of breath, or cough. Denies headache, nausea, vomiting, or diarrhea. Denies abdominal pain or any urinary complaints or incontinence. She denies any numbness or tingling. She reports minimal pain at the surgical site. Infect Dis PN-Objective Data - Labs CBC & Chem 7: 08/18/18 12:33 08/18/18 12:33 Labs: Laboratory Results - last 24 hr 08/18/18 12:33 WBC 8.5 RBC 3.65 L Hgb 11.3 L Hct 35.0 L MCV 95.9 MCH 31.0 MCHC 32.3 RDW 14.4 Plt Count 254 MPV 9.8 Immature Gran % 0.4 Seg Neutrophils % 67.0 Lymphocytes % 21.8 Monocytes % 8.1 Eosinophils % 1.9 Basophils % 0.8 Neutrophils # 5.7 Lymphocytes # 1.9 Monocytes # 0.7 Eosinophils # 0.2 Basophils # 0.1 Cultures: Cultures 08/15/18 08:33 Surgical Biopsy Culture - Final Other-Specify in Comments 08/15/18 08:33 Wound Culture - Final Other-Specify in Comments Escherichia coli 08/15/18 08:33 Wound Culture - Final Other-Specify in Comments Escherichia coli 08/15/18 08:33 Wound Culture - Final Other-Specify in Comments No growth. 08/16/18 12:18 Blood Culture - Preliminary Peripheral Venipuncture Culture is incubating and being continuously monitored for growth. Final report to follow. 08/16/18 12:12 Blood Culture - Preliminary Peripheral Venipuncture Culture is incubating and being continuously monitored for growth. Final report to follow. Exam - Constitutional Vitals: Temp Pulse Resp BP Pulse Ox 98.2 F 72 18 94/53 98 08/18/18 00:42 08/18/18 00:42 08/18/18 00:42 08/18/18 00:42 08/18/18 00:42 General appearance: cooperative, no acute distress, obese - Head Head exam: Present: atraumatic, normal inspection, normocephalic - Eye Eye exam: Present: EOMI, normal appearance, PERRL Pupils: Present: normal accommodation - ENT ENT exam: Present: mucous membranes moist - Neck Neck exam: Present: normal inspection - Respiratory Respiratory exam: Present: CTAB. Absent: rales, respiratory distress, rhonchi, wheezes - Cardiovascular Cardiovascular exam: Present: +S1, +S2 - GI/Abdominal GI/Abdominal exam: Present: normal bowel sounds, soft. Absent: distended, tenderness - Back Exam Additional comments: Lumbar incision dressing C/D/I. No surrounding erythema, warmth, or tenderness noted. - Neurological Exam Neurological exam: Present: alert, oriented X3, no focal deficits - Psychiatric Psychiatric exam: Present: normal affect, normal mood - Skin Skin exam: Present: dry, intact, normal color, warm Consult Discharge Plan - Plan Referrals: Ann Whitt PAC [Physician Landfill Gas Technician] - 09/06/18 1:00 pm Mari Garrett CNP [Advanced Practice Nurse] - 09/06/18 1:40 pm Juanito Echevarria MD [Primary Care Provider] - 10/31/18 8:45 am Prescriptions: RX: OxyCODONE Immed Rel [Roxicodone 5 MG] 5 mg PO Q4HR PRN 7 Days #30 tablet PRN Reason: Severe Pain - Attending Attestation I examined this patient and my medical decision-making was reviewed with the Resident Physician. I agree with the documented findings, disposition and treatment plan as described except to the extent set forth below.
[2018-08-18 14:41] VITALS: BP 96/61
[2018-08-18] MEDS: cefTRIAXone 2,000 MG in 0.9 % Sodium Chloride Mini Bag 100 ML IVPB SCH (14:44)
[2018-08-18 15:10] LABS: Calcium 8.6 mg/dL (8.6-10.3); Potassium 4.4 mEq/L (3.5-5.1)
--- NOTE | 2018-08-18 15:33 | Discharge Summary ---
- NOTES TO OUTPATIENT PROVIDER Notes to Outpatient Provider: Follow-up in 3 weeks in spine Center Orders not resulted at time of discharge: Pending orders 08/15/18 08:33 Culture,Anaerobic [RM] Routine Culture,Anaerobic [RM] Routine Culture,Anaerobic [RM] Routine Culture,Anaerobic [RM] Routine 08/16/18 12:18 Culture,Blood [BC] Routine Date of Encounter: 08/18/18 Time of Encounter: 15:30 - Discharge Diagnosis (1) Postoperative wound infection Priority: Primary Status: Chronic Comments: Surgery performed at outside institution 2 years ago. - Hospital Course Hospital course: Ms. Butler is a 63 year old female who had a chronic draining lumbar wound infection. Her index procedure was an outside institution. She was admitted and had irrigation and debridement of her lumbar wound. Intraoperative cultures were taken. The cultures confirmed and he coli deep wound infection. Infectious disease services consult. Appropriate antibiotics place. Mid line placement. She had subsequent closure of her lumbar wound which was uneventful. She had antibiotic disposition per the infectious disease service. She was scheduled for follow-up in the spine Center as well. She had an uneventful and on a complicated postoperative course. - Time Spent with Patient Total time spent providing and/or coordinating discharge services: - Discharge Medications Prescriptions: OxyCODONE Immed Rel [Roxicodone 5 MG] 5 mg PO Q4HR PRN 7 Days #30 tablet PRN Reason: Severe Pain Home Medications: Alendronate Sodium 70 mg PO TARIQ 08/15/18 [History] Amitriptyline [Elavil] 50 mg PO HS 08/15/18 [History] Bupropion HCl [Wellbutrin Xl] 300 mg PO DAILY 08/15/18 [History] Cholecalciferol (D-3) [Vitamin D] 5,000 unit PO DAILY 08/15/18 [History] Cyanocobalamin (Vitamin B-12) [Vitamin B-12] 2,000 mcg PO DAILY 08/15/18 [Hi story] Cyclobenzaprine HCl 5 mg PO TID 08/15/18 [History] Ferrous Sulfate [Iron] 325 mg PO TID 08/15/18 [History] Folic Acid 1 mg PO DAILY 08/15/18 [History] Gabapentin [Neurontin] 300 mg PO BID 08/15/18 [History] Levothyroxine [Levothyroxine Sodium] 137 mcg PO DAILY@0630 08/15/18 [History] Multivitamin [One Daily Multivitamin] 1 tab PO DAILY 08/15/18 [History] Propranolol [Inderal] 20 mg PO BID 08/15/18 [History] Sulfamethoxazole/Trimeth DS [Bactrim Ds] 1 tab PO BID 08/15/18 [History] OxyCODONE Immed Rel [Roxicodone 5 MG] 5 mg PO Q4HR PRN 7 Days #30 tablet 08/18/18 [Rx] Allergies/Adverse Reactions: Allergy/AdvReac Type Severity Reaction Status Date / Time Penicillins [PCN] Allergy Hives Verified 08/15/18 06:46 iodine AdvReac Hypotension Verified 08/15/18 06:46 Date of admission: 08/17/18 13:46 Primary care physician: Juanito Echevarria MD Consults: 08/17/18 14:55 Consult to Nurse Navigator [CONS] Routine Comment: spine navigator Consult to Cutting Supervisor [CONS] Routine Reason for SW Consult: HIVAT Labs on day of discharge: Labs from last 24 hours 08/18/18 08/18/18 12:33 12:33 WBC 8.5 RBC 3.65 L Hgb 11.3 L Hct 35.0 L MCV 95.9 MCH 31.0 MCHC 32.3 RDW 14.4 Plt Count 254 MPV 9.8 Immature Gran % 0.4 Seg Neutrophils % 67.0 Lymphocytes % 21.8 Monocytes % 8.1 Eosinophils % 1.9 Basophils % 0.8 Neutrophils # 5.7 Lymphocytes # 1.9 Monocytes # 0.7 Eosinophils # 0.2 Basophils # 0.1 Sodium 137 Potassium 4.4 Chloride 103 Carbon Dioxide 31 H BUN 15 Creatinine 1.12 Est GFR ( Amer) 59 L Est GFR (Non-Af Amer) 49 L BUN/Creatinine Ratio 13 Glucose 95 Calculated Osmolality 285 Calcium 8.6 Preliminary micro results at discharge 08/16/18 12:18 Blood Culture - Preliminary Peripheral Venipuncture Culture is incubating and being continuously monitored for growth. Final report to follow. 08/16/18 12:12 Blood Culture - Preliminary Peripheral Venipuncture Culture is incubating and being continuously monitored for growth. Final report to follow. - Impressions ITS Impressions Fluoroscopy 08/15/18 00:00 IMPRESSION: Fluoroscopy was utilized for the purposes of lumbar intervention for infection D/ / Jeferson Butcher MD / Jeferson Butcher MD Interpreting Provider: Jeferson Butcher MD Lumbar Spine X-Ray 08/15/18 00:00 IMPRESSION: Fluoroscopy was utilized for the purposes of lumbar intervention for infection D/ / Jeferson Butcher MD / Jeferson Butcher MD Interpreting Provider: Jeferson Butcher MD - Patient Status Disposition: Home Health Service Condition: Good Functional capacity at discharge: independent ambulation Overall status at discharge: patient is progressing back to baseline - Discharge Instructions Follow Up With: Ann Whitt PAC [Physician Steam Conditioner Filling] - 09/06/18 1:00 pm Mari Garrett CNP [Advanced Practice Nurse] - 09/06/18 1:40 pm Juanito Echevarria MD [Primary Care Provider] - 10/31/18 8:45 am - Diet and Activity Activity: as per physical therapy Diet: advance to your usual diet
[2018-08-18 17:14] LABS: Albumin 3.6 g/dL (3.5-5.7); Albumin/Globulin Ratio 1.2 (1.1-2.2); Bilirubin,Direct 0.1 mg/dL (0.0-0.2); Bilirubin,Indirect 0.3 mg/dL (0.0-1.2); Bilirubin,Total 0.4 mg/dL (0.3-1.0); Total Protein 6.6 g/dL (6.4-8.9)
[2018-08-18] MEDS ORDERED: *HR* OxyCODONE Immed Rel 5 MG TABLET PO ONE (17:29)
[2018-08-18] MEDS ORDERED: BuPROPion XL (24 HR) 150 MG TABLET PO ONE (17:29)
[2018-08-18] MEDS ORDERED: Cholecalciferol (D-3) 1,000 UNIT TABLET PO ONE (17:29)
[2018-08-18] MEDS ORDERED: Cyanocobalamin (B-12) 1,000 MCG TABLET PO ONE (17:29)
[2018-08-18] MEDS ORDERED: Multivit/Ca/Min/Fe/FA 1 TAB TABLET PO ONE (17:29)
[2018-08-18] MEDS ORDERED: Folic Acid 1 MG TABLET PO ONE (17:29)
[2018-08-21] MEDS ORDERED: NON-FORMULARY MEDICATION 1 EACH EACH (Alendronate Sodium [Alendronate Sodium] 70 MG) PO SCH (10:10)
== END 2018-08-18 17:30 | disposition home health service (06) ==
LOC: 3NENU 06:23 → SAMDAY 06:23 → 3NENU 10:56
PROVIDERS: ADMIT Orthopaedic Surgery Orthopaedic Surgery of the Spine; ATTEND Orthopaedic Surgery Orthopaedic Surgery of the Spine